=== PATIENT | male | born 1965 | race Caucasian/White ===

== ENCOUNTER 2019-10-10 16:16 | Emergency (ER) | payer SELFPAY ==
[~2019-10-10] VITALS: Wt 91.2 kg
[2019-10-10 16:54] LABS: HEMATOCRIT 35.3 % (42.0-52.0); HEMOGLOBIN 10.8 g/dl (14.0-18.0); MEAN CELL VOLUME 102.6 fl (80.0-94.0); MEAN CORPUSCULAR HGB 31.4 pg (27.0-31.0); MEAN CORPUSCULAR HGB CONC 30.6 g/dl (33.0-37.0); MEAN PLATELET VOLUME 10.1 fl (9.6-12.3); PLATELET COUNT AUTOMATED 201 10*3/uL (130-400); RED BLOOD COUNT 3.44 10*6/uL (4.50-5.90); RED CELL DISTRI WIDTH 13.5 % (0-14.5); WHITE BLOOD COUNT 12.7 10*3/uL (4.8-10.8)
[2019-10-10 16:57] LABS: ABG BASE EXCESS -22.9 mmol/L (-2.0-2.0)
[2019-10-10 16:59] LABS: ARTERIAL BLOOD GAS PH 6.807 (7.35-7.45)
[2019-10-10 17:05] LABS: BILIRUBIN NEGATIVE (NEGATIVE); BLOOD NEGATIVE (NEGATIVE); CLARITY CLOUDY (CLEAR); COLOR YELLOW (YELLOW); GLUCOSE NEGATIVE (NEGATIVE); KETONE NEGATIVE (NEGATIVE); PH 6.5 (5.0-9.0); UROBILINOGEN 0.2 E.U./dl (0.2-1.0)
[2019-10-10 17:06] LABS: BACTERIA 2+; EPITHELIAL CELLS 0-2; LEUKO ESTERASE TRACE (NEGATIVE); NITRITE NEGATIVE (NEGATIVE); RBC 0-2 rbc/hpf (0-2)
[2019-10-10 17:13] LABS: TOTAL CELLS COUNTED 100 #CELLS
[2019-10-10 17:14] LABS: BURR CELLS FEW; PLATELET SUFFICIENCY NORMAL (NORMAL)
[2019-10-10 17:16] LABS: ACT PARTIAL THROMBO TIME 26.9 SECONDS (20.0-32.1)
[2019-10-10 17:19] LABS: ALBUMIN 2.4 gm/dl (3.1-4.5); CREATININE 3.82 mg/dL (0.70-1.30); POTASSIUM 2.9 mmol/L (3.5-5.1); TOTAL PROTEIN 5.3 gm/dL (6.4-8.2)
[2019-10-10 17:22] LABS: TROPONIN I 0.084 ng/ml (<0.045)
[2019-10-10 17:59] LABS: ABG BASE EXCESS -6.3 mmol/L (-2.0-2.0)
[2019-10-10 18:00] LABS: ARTERIAL BLOOD GAS PH 7.183 (7.35-7.45)
== END 2019-10-10 19:31 | disposition short-term general hospital (02) ==
LOC: ED 16:16
PROVIDERS: Emergency Medicine
DX: I46.9 Cardiac arrest, cause unspecified (principal); J44.9 Chronic obstructive pulmonary disease, unspecified; F17.210 Nicotine dependence, cigarettes, uncomplicated